=== PATIENT | female | born 1990 | race Hispanic/Latino ===

== ENCOUNTER 2020-12-11 15:01 | Observation (INO) | payer OTHER ==
[2020-12-11 19:31] LABS: Basophils % 1.1 % (0-1.3); Hematocrit 18.6 % (36.0-45.0); Lymphocytes % 32.3 % (15.3-44.8); MPV 8.6 fL (7.6-11.3); RBC Red Blood Cell Count 3.41 M/uL (3.86-4.86)
[2020-12-11 19:36] LABS: Protime INR 1.14
[2020-12-11 19:41] LABS: Albumin 4.4 g/dL (3.4-5.0); Bilirubin Direct 0.2 mg/dL (0-0.2); Bilirubin Total 0.7 mg/dL (0.2-1.0); Magnesium 2.4 mg/dL (1.8-2.4); Protein, Total 8.7 g/dL (6.4-8.2)
--- NOTE | 2020-12-11 20:03 | EDPHYS ---
Physician Documentation [facility] Name: Natasha Villarreal Age: 30 yrs Sex: Female : 1990 Arrival Date: 12/11/2020 Time: 15:07 Bed 18 Private MD: ED Physician Da Juan HPI: 12/11 18:47 This 30 yrs old Female presents to ER via Ambulatory with complaints of Anemia.cp 18:47 Onset: The symptoms/episode began/occurred gradually. cp 18:47 Associated signs and symptoms: Pertinent negatives: abdominal pain, chest pain. cp 18:47 Patient reports history of heavy menstrual bleeding for past 1 year with bleeding cp lasting 1 week. Patient denies any current vaginal bleeding and/or blood in stools or dark colored stools. Patient reports last menstrual cycle was 1 week ago. 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 - Social history:: Smoking status: Patient denies any tobacco usage or history of. ROS: 18:55 Constitutional: Positive for fatigue, Negative for body aches, chills, fever, poor PO cp intake. 18:55 Eyes: Negative for injury, pain, redness, and discharge. cp 18:55 Cardiovascular: Negative for chest pain, edema, palpitations. 18:55 Respiratory: Negative for cough, shortness of breath, wheezing. 18:55 Abdomen/GI: Negative for abdominal pain, nausea, vomiting, and diarrhea. 18:55 : Negative for urinary symptoms, vaginal bleeding. 18:55 Neuro: Negative for altered mental status, dizziness, headache, syncope, weakness. 18:55 All other systems are negative. Exam: 19:00 Constitutional: The patient appears in no acute distress, alert, awake, comfortable, cp non-toxic, well developed, well nourished, obese. 19:00 Head/Face: Normocephalic, atraumatic. cp 19:00 Eyes: Periorbital structures: appear normal, Conjunctiva: normal, no exudate, no injection, Sclera: no appreciated abnormality, Lids and lashes: appear normal, bilaterally. 19:00 ENT: External ear(s): are unremarkable, Nose: is normal, Posterior pharynx: Airway: no evidence of obstruction, patent. 19:00 Chest/axilla: Inspection: normal. 19:00 Cardiovascular: Rate: tachycardic, Rhythm: regular, Edema: is not appreciated, JVD: is not appreciated. 19:00 Respiratory: the patient does not display signs of respiratory distress, Respirations: normal, no use of accessory muscles, no retractions, labored breathing, is not present, Breath sounds: are clear throughout, no decreased breath sounds, no stridor, no wheezing. 19:00 Abdomen/GI: Exam negative for discomfort, distension, guarding, Inspection: abdomen appears normal. 19:00 Back: pain, is absent, ROM is normal. 19:00 Neuro: Orientation: to person, place \\T\\ time. Mentation: is normal, Motor: moves all fours, strength is normal. 19:25 ECG was reviewed by the Attending Physician. Vital Signs: 15:22 BP 143 / 69; Pulse 100; Resp 17; Temp 98.8; Pulse Ox 99% on R/A; Weight 105.23 kg; ll1 Height 5 ft. 4 in. (162.56 cm); Pain 0/10; 19:27 BP 136 / 59; Pulse 96; Resp 14; Pulse Ox 100% on R/A; jp3 21:00 BP 130 / 70; Pulse 105; Resp 16; Pulse Ox 100% ; sf 22:00 BP 123 / 58; Pulse 99; Resp 16; Pulse Ox 99% ; sf 23:00 BP 124 / 51; Pulse 89; Resp 16; Temp 99; Pulse Ox 100% ; sf 23:25 BP 139 / 60; Pulse 97; Resp 16; Temp 98.7; Pulse Ox 100% ; Pain 0/10; sf 15:22 Body Mass Index 39.82 (105.23 kg, 162.56 cm) ll1 MDM: 18:23 Patient medically screened. cp 20:00 Data reviewed: vital signs, nurses notes, lab test result(s), radiologic studies, cp ultrasound. 20:00 Counseling: I had a detailed discussion with the patient and/or guardian regarding: the cp historical points, exam findings, and any diagnostic results supporting the discharge/admit diagnosis, lab results, radiology results, the need for further work-up and treatment in the hospital. 12/11 18:47 Order name: Basic Metabolic Panel 12/11 18:47 Order name: CBC with Diff; Complete Time: 19:48 12/11 19:51 Interpretation: Normal except: RBC 3.41; HGB 5.3; HCT 18.6; MCV 54.6; MCH 15.5; MCHC cp 28.4; PLT 494; RDW 21.3. 12/11 18:47 Order name: LFT's; Complete Time: 19:48 12/11 19:51 Interpretation: Normal except: TP 8.7; GLOB 4.3; A/G 1.0. 12/11 18:47 Order name: Magnesium; Complete Time: 19:48 12/11 18:47 Order name: PT-INR; Complete Time: 19:48 12/11 18:47 Order name: Type And Screen 12/11 18:47 Order name: Ptt, Activated; Complete Time: 19:48 12/11 18:47 Order name: Basic Metabolic Panel; Complete Time: 19:48 EDMS 12/11 20:45 Order name: Urine Dipstick--Ancillary (enter results) [facility] 12/11 20:45 Order name: Urine --Ancillary (enter results) [facility] 12/11 20:49 Order name: COVID-19 : Document "Date of Symptom Onset" if Symptomatic. 12/11 21:13 Order name: Urine Dipstick--Ancillary (enter results); Complete Time: 18:45 12/11 18:47 Order name: EKG - Nurse/Tech; Complete Time: 19:30 12/11 18:47 Order name: EKG; Complete Time: 18:47 12/11 18:47 Order name: Cardiac monitoring; Complete Time: 19:25 12/11 18:47 Order name: IV Saline Lock; Complete Time: 19:25 12/11 18:47 Order name: Labs collected and sent; Complete Time: 19:25 12/11 18:47 Order name: O2 Per Protocol; Complete Time: 19:25 12/11 18:47 Order name: O2 Sat Monitoring; Complete Time: 19:21 12/11 19:57 Order name: US Pelvis Complete; Complete Time: 21:42 cp 12/11 21:13 Order name: Urine --Ancillary (enter results); Complete Time: 18:45 sg 12/11 22:53 Order name: SARS-COV-2 RT PCR; Complete Time: 18:45 EDMS EC:25 Rate is 89 beats/min. Rhythm is regular. OR interval is normal. QRS interval is normal. cp QT interval is normal. T waves are Inverted in lead aVR. Interpreted by me. Reviewed by me. Administered Medications: No medications were administered Disposition: 12/11/20 20:03 Hospitalization ordered by Chong Strong for Observation. Preliminary diagnosis is Anemia in chronic diseases classified elsewhere. - Bed requested for Telemetry/MedSurg (observation). - Status is Observation. sf - Condition is Stable. - Problem is new. - Symptoms are unchanged. Addendum: 12/14/2020 08:24 Co-signature as Attending Physician, Da Juan MD I agree with the assessment and k dr plan of care. Signatures: Dispatcher [facility] Dora Barber RN RN mw Rittger, Kevin, MD MD [facility] Aric Tinsley PA PA cp Yoko Blanc RN RN 1 Bk Streeter RN RN sf Corrections: (The following items were deleted from the chart) 12/11 21:11 20:45 Urine Dipstick-Ancillary ordered. EDTX EDMS 21:11 20:45 Urine --Ancillary ordered. EDTX EDMS 23:04 20:03 Hospitalization Ordered by Chong Strong for Observation. Preliminary diagnosis mw is Anemia in chronic diseases classified elsewhere. Bed requested for Telemetry/MedSurg (observation). Status is Observation. Condition is Stable. Problem is new. Symptoms are unchanged. cp 12/12 00:02 12/11 23:04 12/11/2020 20:03 Hospitalization Ordered by Chong Strong for Observation. sf Preliminary diagnosis is Anemia in chronic diseases classified elsewhere. Bed requested for Telemetry/MedSurg (observation). Status is Observation. Condition is Stable. Problem is new. Symptoms are unchanged. mw
--- NOTE | 2020-12-11 20:03 | ER ---
Nurse's Notes [facility] Name: Natasha Villarreal Age: 30 yrs Sex: Female : 1990 Arrival Date: 12/11/2020 Time: 15:07 Bed 18 Private MD: Diagnosis: Anemia in chronic diseases classified elsewhere Presentation: 12/11 15:22 Chief complaint: Patient states: Had blood work drawn this [facility]. Was told to come to ER for low iron, possible blood transfusion. HGB 5.3, HCT 21. Fatigues easily. Coronavirus screen: Client denies travel out of the [place] in the last 14 days. At this time, the client does not indicate any symptoms associated with coronavirus-19. Ebola Screen: Patient denies travel to an Ebola-affected area in the 21 days before illness onset. Initial Sepsis Screen: Does the patient meet any 2 criteria? HR > 90 bpm. No. Patient's initial sepsis screen is negative. Does the patient have a suspected source of infection? No. Patient's initial sepsis screen is negative. Risk Assessment: Do you want to hurt yourself or someone else? Patient reports no desire to harm self or others. Onset of symptoms was December 11, 2020. 15:22 Method Of Arrival: Ambulatory [facility] 15:22 Acuity: CAMILLA 3 ll1 Triage Assessment: 15:28 General: Appears ill, Behavior is calm, cooperative, appropriate for age. ll1 15:28 Pain: Denies pain. Neuro: Level of Consciousness is awake, alert, obeys commands, ll1 Oriented to person, place, time, situation, Appropriate for age Integration Project Manager are equal bilaterally Moves all extremities. Full function Gait is steady, Speech is normal, Facial symmetry appears normal, Reports fatigues easily. +pale. Cardiovascular: Reports fatigue, Heart tones S1 S2 Capillary refill < 3 seconds Clubbing of nail beds is absent JVD is absent Patient's skin is warm and dry. Respiratory: No deficits noted. GI: No deficits noted. 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 - Social history:: Smoking status: Patient denies any tobacco usage or history of. Screenin:16 Abuse screen: Denies threats or abuse. Nutritional screening: No deficits noted. ll1 Tuberculosis screening: No symptoms or risk factors identified. Fall Risk IV access (20 points). Gait- Weak (10 pts.). Total Robles Fall Scale indicates Low Risk Score (25-44 pts). Fall prevention measures have been instituted. Side Rails Up X 2 Frequent Obs/Assesments occuring As available Patient and Family Educated on Fall Prevention Program and strategies. Assessment: 18:15 Reassessment: No changes from previously documented assessment. Patient and/or family ll1 updated on plan of care and expected duration. Pain level reassessed. Patient states symptoms have not improved. 19:36 General: Appears in no apparent distress. comfortable, Behavior is calm, cooperative, sf Denies feeling ill. Pain: Denies pain. Neuro: No deficits noted. Level of Consciousness is awake, alert, Oriented to person, place, time, situation. Cardiovascular: No deficits noted. Patient's skin is warm and dry. Rhythm is sinus rhythm. Respiratory: No deficits noted. Airway is patent Respiratory effort is even, unlabored, Respiratory pattern is regular, symmetrical. GI: No deficits noted. No signs and/or symptoms were reported involving the gastrointestinal system. : No deficits noted. No signs and/or symptoms were reported regarding the genitourinary system. EENT: No deficits noted. No signs and/or symptoms were reported regarding the EENT system. Derm: Skin is dry, Skin is pale, Skin temperature is warm. Musculoskeletal: No signs and/or symptoms reported regarding the musculoskeletal system. 21:00 Reassessment: Patient appears in no apparent distress at this time. No changes from sf previously documented assessment. Patient and/or family updated on plan of care and expected duration. Pain level reassessed. Patient is alert, oriented x 3, equal unlabored respirations, skin warm/dry/pink. 22:00 Reassessment: Patient appears in no apparent distress at this time. No changes from sf previously documented assessment. Patient and/or family updated on plan of care and expected duration. Pain level reassessed. Patient is alert, oriented x 3, equal unlabored respirations, skin warm/dry/pink. 23:00 Reassessment: Patient appears in no apparent distress at this time. No changes from previously documented assessment. Patient and/or family updated on plan of care and expected duration. Pain level reassessed. Patient is alert, oriented x 3, equal unlabored respirations, skin warm/dry/pink. 23:10 Reassessment: Blood transfusion started. 12/12 00:00 Reassessment: Blood transfusion continue upon transfer to floor, paper sent with patient. Vital Signs: 12/11 15:22 BP 143 / 69; Pulse 100; Resp 17; Temp 98.8; Pulse Ox 99% on R/A; Weight 105.23 kg; ll1 Height 5 ft. 4 in. (162.56 cm); Pain 0/10; 19:27 BP 136 / 59; Pulse 96; Resp 14; Pulse Ox 100% on R/A; jp3 21:00 BP 130 / 70; Pulse 105; Resp 16; Pulse Ox 100% ; sf 22:00 BP 123 / 58; Pulse 99; Resp 16; Pulse Ox 99% ; sf 23:00 BP 124 / 51; Pulse 89; Resp 16; Temp 99; Pulse Ox 100% ; sf 23:25 BP 139 / 60; Pulse 97; Resp 16; Temp 98.7; Pulse Ox 100% ; Pain 0/10; sf 15:22 Body Mass Index 39.82 (105.23 kg, 162.56 cm) ll1 ED Course: 15:07 Patient arrived in ED. mr 15:26 Triage completed. ll1 15:27 Arm band placed on. ll1 18:16 Patient placed in an exam room, on a stretcher. ll1 18:17 Patient has correct armband on for positive identification. Bed in low position. Call 1 light in reach. Side rails up X 1. 18:18 Aric Tinsley PA is PHCP. cp 18:18 Da Juan MD is Attending Physician. cp 19:05 Bk Streeter, ALICIA is Primary Nurse. sf 19:22 Basic Metabolic Panel Sent. sf 19:22 Inserted saline lock: 20 gauge in left antecubital area, using aseptic technique. Blood jp3 collected. 19:22 Initial lab(s) drawn, by nd, sent to lab. T\T\S collected, blood band applied to patient. jp3 Patient maintains SpO2 saturation greater than 95% on room air. 19:25 EKG done, by ED staff, reviewed by Aric CONTI. jp3 20:01 Chong Strong is Hospitalizing Provider. cp 20:13 US Pelvis Complete Sent. sf 20:25 US Pelvis Complete In Process Unspecified. EDLA 21:00 Urine collected: clean catch specimen, clear, COVID swab sent to lab. sf 21:09 Urine --Ancillary (enter results) Sent. 21:09 Urine Dipstick--Ancillary (enter results) Sent. sf 23:41 No provider procedures requiring assistance completed. Patient admitted, IV remains in sf place. Administered Medications: No medications were administered Outcome: 20:03 Decision to Hospitalize by Provider. cp 23:41 Admitted to Tele accompanied by tech, via stretcher, room 413, Report called to stepan Moe RN 23:41 Condition: stable 23:41 Instructed on the need for admit. 12/12 00:02 Patient left the ED. sf Signatures: Dispatcher [employer] [facility] Alecia Villarreal mr Aric Tinsley PA PA cp Lyle Ledbetter jp3 Yoko Blanc, RN RN ll1 Bk Streeter RN RN
--- NOTE | 2020-12-11 20:36 | RAD REPORT ---
EXAM DESCRIPTION: US - Pelvis Complete - 12/11/2020 8:25 pm CLINICAL HISTORY: Pelvic pain /anemia COMPARISON: February 2016 FINDINGS: The uterus measures 9 x 3 x 5cm. The endometrial stripe measures 4 millimeters. A fibroid is not seen. 12 millimeter nabothian cysts within the cervix The ovaries are normal in size and echotexture. The right and left adnexa unremarkable No significant free fluid is seen. IMPRESSION: Unremarkable pelvic ultrasound
[2020-12-11 22:02] LABS: Urine Blood NEGATIVE (Negative); Urine Glucose NEGATIVE (Negative); Urine Protein NEGATIVE (NEG); Urine Specific Gravity 1.025 (1.005-1.030); Urine Specific Gravity/Preg 1.025 (1.005-1.030)
[2020-12-11] MEDS ORDERED: NA CHLORIDE 0.9% 250 ML ONE (23:17)
[2020-12-12] MEDS ORDERED: ONDANSETRON 4 MG/2 ML VIAL IV PRN (00:43)
[2020-12-12] MEDS ORDERED: DIPHENHYDRAMINE 25 MG TAB/CAP PO PRN (00:43)
[2020-12-12] MEDS ORDERED: ACETAMINOPHEN 500 MG TAB PO PRN (00:43)
[2020-12-12 00:54] VITALS: BMI 40.2
[2020-12-12] MEDS ORDERED: NA CHLORIDE 0.9% 100 ML ONE (01:41)
--- NOTE | 2020-12-12 03:50 | P.HP ---
Certification for Inpatient Patient admitted to: Observation With expected LOS: <2 Midnights Patient will require the following post-hospital care: None Practitioner: I am a practitioner with admitting privileges, knowledge of patient current condition, hospital course, and medical plan of care. Services: Services provided to patient in accordance with Admission requirements found in Title 42 Section 412.3 of the Code of Federal Regulations <Jc Candelario - Last Filed: 12/12/20 03:44> Patient History Date of Service: 12/11/20 Primary Care Provider: Sobeida Diaz Reason for admission: anemia requiring transfusions History of Present Illness: Ms. Villarreal is a 30yo F with no PMH here today for incidental lab finding of Hgb 5.3 / Hct 18.6. She was told her iron was low at a fertility clinic appointment and was told to follow up with PCP who told her to come to the ER. She is asymptomatic. She said she had iron deficiency anemia in [facility] and took iron pills at that time. She no longer takes iron pills, but has just started prenatals. She has always had irregular periods, but since she started exercising and eating better her periods returned last year and now occur every month. For the past 6 mo they have become irregular and heavier than before. She uses 4-5 pads a day. Her periods last 7 days with cramping. She denies hemoptysis, hemetemesis, hematochezia, dizziness, lightheadedness, palpitations, fatigue. Her mom and sister are both anemic. Pelvic ultrasound was wnl. She was found to be incidentally COVID+. - Past Medical/Surgical History Has patient received pneumonia vaccine in the past: No Diabetic: No -: infertility - Family History Mother -: Other (see notes) Notes: anemia Sister Notes: anemia - Social History Smoking Status: Never smoker Alcohol use: No CD- Drugs: No Caffeine use: No Place of Residence: Home <Jc Candelario - Last Filed: 12/12/20 03:44> Date of Service: 12/12/20 <preeti sifuentes - Last Filed: 12/12/20 11:30> Allergies No Known Allergies Allergy (Verified 12/12/20 04:29) Review of Systems 10-point ROS is otherwise unremarkable <Jc Candelario - Last Filed: 12/12/20 03:44> Physical Examination - Vital Signs Temperature: 97.7 F Blood Pressure: 135/62 Pulse: 95 Respirations: 18 Pulse Ox (%): 100 - Physical Exam General: Alert, In no apparent distress, Oriented x3, Cooperative HEENT: Atraumatic, Normocephalic, PERRLA, Mucous membr. moist/pink Neck: Supple, 2+ carotid pulse no bruit, JVD not distended, No Thyromegaly, No LAD Respiratory: Clear to auscultation bilaterally, Normal air movement Cardiovascular: No edema, Normal pulses, Regular rate/rhythm, Normal S1 S2, No gallops, No rubs, No murmurs Capillary refill: <2 Seconds Gastrointestinal: Normal bowel sounds, Soft and benign, Non-distended, No ascites, No tenderness, No masses, No rebound, No guarding Musculoskeletal: No clubbing, No swelling, No contractures, No erythema, No tenderness, No warmth Integumentary: No rashes, No breakdown, No significant lesion, No tenderness/swelling, No erythema, No warmth, No cyanosis Neurological: Normal gait, Normal speech, Normal strength at 5/5 x4 extr, Normal tone, Sensation intact, Cranial nerves 3-12 intact, Normal affect Lymphatics: No axilla or inguinal lymphadenopathy - Studies Laboratory Data (last 24 hrs) 12/11/20 19:08: PT 13.1 H, INR 1.14, APTT 23.0 L 12/11/20 19:08: WBC 6.30, Hgb 5.3 L*, Hct 18.6 L*, Plt Count 494 H 12/11/20 19:08: Sodium 141, Potassium 4.0, BUN 14, Creatinine 0.83, Glucose 81, Magnesium 2.4, Total Bilirubin 0.7, AST 19, ALT 23, Alkaline Phosphatase 61 <Jc Candelario S - Last Filed: 12/12/20 03:44> - Studies Laboratory Data (last 24 hrs) 12/11/20 19:08: PT 13.1 H, INR 1.14, APTT 23.0 L 12/11/20 19:08: WBC 6.30, Hgb 5.3 L*, Hct 18.6 L*, Plt Count 494 H 12/11/20 19:08: Sodium 141, Potassium 4.0, BUN 14, Creatinine 0.83, Glucose 81, Magnesium 2.4, Total Bilirubin 0.7, AST 19, ALT 23, Alkaline Phosphatase 61 <preeti sifuentes - Last Filed: 12/12/20 11:30> Assessment and Plan - Problems (Diagnosis) (1) Anemia requiring transfusions Current Visit: Yes Status: Acute (2) COVID-19 Current Visit: Yes Status: Acute - Plan -initial Hgb 5.3, MCV 54.6 -receiving 2 units of pRBCs, will recheck H/H after transfusion -iron panel pending, may require IV iron -can discharge when Hgb>7 -pelvic U/S wnl Discharge Plan: Home Plan to discharge in: 24 Hours - Advance Directives Does patient have a Living Will: No Does patient have a Durable POA for Healthcare: No - Code Status/Comfort Care Code Status Assessed: Yes (full code) Critical Care: No Time Spent Managing Pts Care (In Minutes): 70 <Jc Candelario - Last Filed: 12/12/20 03:44> Physician Review: Patient Assessed, Agree with Above Assessment and Plan Physician Review Additional Text: Iron deficiency anemia. COVID 19 Plan: Transfuse 2 units PRBC. Recheck hemoglobin and transfuse p.r.n. to keep hemoglobin about 7 Iron therapy. <preeti sifuentes - Last Filed: 12/12/20 11:30>
[2020-12-12 07:37] LABS: Albumin 3.8 g/dL (3.4-5.0); Bilirubin Total 1.2 mg/dL (0.2-1.0); Magnesium 2.4 mg/dL (1.8-2.4); Phosphorus 3.9 mg/dL (2.5-4.9); Potassium 4.1 mmol/L (3.5-5.1); Protein, Total 7.8 g/dL (6.4-8.2)
[2020-12-12 07:46] LABS: Thyroid Stimulating Hormone 4.02 uIU/mL (0.360-3.740)
[2020-12-12 08:17] LABS: Basophils % 1.7 % (0-1.3); Hematocrit 23.5 % (36.0-45.0); Lymphocytes % 34.4 % (15.3-44.8); MPV 8.7 fL (7.6-11.3); RBC Red Blood Cell Count 3.79 M/uL (3.86-4.86)
[2020-12-12] MEDS ORDERED: NA CHLORIDE 0.9% 250 ML ONE (10:53)
--- NOTE | 2020-12-12 11:12 | EKG ---
Test Date: 2020-12-11 Test Time: 19:18:02 Clinical Specialist Medical Device: LILIANA MEASUREMENT RESULTS: Intervals: Rate: 89 WY: 170 QRSD: 82 QT: 366 QTc: 445 Palms: P: 42 WY: 170 QRS: 71 T: 14 INTERPRETIVE STATEMENTS: Normal sinus rhythm Normal ECG No previous ECG available for comparison Electronically Signed On 12-12-20 11:11:08 CDT by Reji Amor
--- NOTE | 2020-12-12 11:35 | P.DS ---
Admission Date: 12/11/20 Discharge Date: 12/12/20 Primary Care Provider: Sobeida Diaz Disposition: ROUTINE DISCHARGE Discharge Condition: FAIR Reason for Admission: anemia requiring transfusions - Problems (1) Iron deficiency anemia due to chronic blood loss Current Visit: Yes Status: Acute (2) Anemia requiring transfusions Current Visit: Yes Status: Acute (3) COVID-19 Current Visit: Yes Status: Acute Brief History of Present Illness: 30-year-old woman was referred from a fertility Clinic for evaluation for anemia with hemoglobin of 5.3. Her hemoglobin in the ED was 5.3. Patient reports heavy irregular menses which is likely the cause of the anemia. Patient was hospitalized for blood transfusion. Hospital Course: Patient hospitalized in given 3 units PRBC transfusion. Posttransfusion hemoglobin is up to.... Her iron level is also low for which patient is prescribed iron polysaccharide. She is up to follow with her brake liner for further evaluation and treatment for the heavy menses. Patient deemed clinically stable for discharge. Vital Signs/Physical Exam: Temp Pulse Resp BP Pulse Ox 97.1 F 89 20 126/60 100 12/12/20 08:00 12/12/20 08:00 12/12/20 08:00 12/12/20 08:00 12/12/20 08:00 General: Alert, In no apparent distress Neck: Supple Respiratory: Normal air movement, Other (Nonlabored breathing) Cardiovascular: No edema, Regular rate/rhythm Gastrointestinal: Soft and benign, Non-distended Musculoskeletal: No swelling Integumentary: No rashes Neurological: Normal strength at 5/5 x4 extr Laboratory Data at Discharge: WBC 5.80 K/uL (4.3-10.9) 12/12/20 07:09 Hgb 6.9 g/dL (12.0-15.0) L* 12/12/20 07:09 Hct 23.5 % (36.0-45.0) L D 12/12/20 07:09 Plt Count 465 K/uL (152-406) H 12/12/20 07:09 PT 13.1 SECONDS (9.5-12.5) H 12/11/20 19:08 INR 1.14 12/11/20 19:08 APTT 23.0 SECONDS (24.3-36.9) L 12/11/20 19:08 Sodium 139 mmol/L (136-145) 12/12/20 07:09 Potassium 4.1 mmol/L (3.5-5.1) 12/12/20 07:09 BUN 14 mg/dL (7-18) 12/12/20 07:09 Creatinine 0.82 mg/dL (0.55-1.3) 12/12/20 07:09 Glucose 85 mg/dL (74-106) 12/12/20 07:09 Phosphorus 3.9 mg/dL (2.5-4.9) 12/12/20 07:09 Magnesium 2.4 mg/dL (1.8-2.4) 12/12/20 07:09 Total Bilirubin 1.2 mg/dL (0.2-1.0) H 12/12/20 07:09 AST 14 U/L (15-37) L 12/12/20 07:09 ALT 20 U/L (12-78) 12/12/20 07:09 Alkaline Phosphatase 55 U/L (45-117) 12/12/20 07:09 Home Medications: Iron Polysaccharide Complex [Polysaccharide Iron] 150 mg PO DAILY #30 capsule 12/12/20 New Medications: Iron Polysaccharide Complex [Polysaccharide Iron] 150 mg PO DAILY #30 capsule Followup: OOT,OOT [Primary Care Provider] -
[2020-12-12 11:57] VITALS: O2SAT 100
[2020-12-12 12:08] LABS: Anisocytosis 3+; Basophilic Stippling 1+; Blood Morphology Comment NOTED (NOT SEEN); Hypochromasia 4+; Platelet Estimate ADEQ; Polychromasia 1+; White Blood Cell Scan OK (OK)
[2020-12-12 17:12] VITALS: BP 122/58; TEMP 97.5
[2020-12-12 17:46] LABS: Hematocrit 27.4 % (36.0-45.0)
== END 2020-12-12 18:27 | disposition home or self-care (01) ==
LOC: ER 15:01 → ERHOLD 21:32 → INTOOBSV 21:32 → 4TH 23:36
PROVIDERS: ADMIT Internal Medicine; ATTEND Internal Medicine
DX: D50.0 Iron deficiency anemia secondary to blood loss (chronic) (principal); U07.1 COVID-19; E03.9 Hypothyroidism, unspecified; Z83.2 Family history of diseases of the blood and blood-forming organs and certain disorders involving the immune mechanism
CPT/HCPCS: 36430 ×2; 93005; 85025 ×2; 80048; 36415; 86900; 83735 ×2; 86850; 81025; 84100; 85610; 86901; 80076; 85730; 84443; 85018; 85014; 81003; 84439; 82728; 83540; 80053; 84466; 76856; 99285; U0003; P9016 ×3; J7050 ×2; G0378

== ENCOUNTER 2025-05-07 09:32 | Emergency (ER) | payer OTHER, SELFPAY ==
--- OUTSIDE RECORDS SUMMARY | 2025-05-07 09:34 | XMS REPORT | Continuity of Care Document ---
Author Name Unknown Address [address] [facility] [place] [address] [facility] Address [address] [facility] [place] [address] Care Team Providers Care Shell Molder Name Role Phone Jr Tesfaye Primary Care Physician [phone] Medications Ordered Medication Name Filled Medication Name Start Date Stop Date Current Medication? Ordering Clinician Indication Dosage Frequency Signature (SIG) Comments Components Source Nexplanon 68 mg subdermal implant 01-30 00:00: 00 Yes 1mg Vahid Corrigan Ferrex 150 mg iron capsule 01-18 00:00: 00 Yes 1mg iron Vahid Corrigan Dose Unknown 12-24 00:00: 00 Yes Vahid Corrigan Ferrex 150 mg iron capsule 12-23 00:00: 00 Yes 1mg iron Vahid Corrigan levothyroxi ne 25 mcg tablet 12-19 00:00: 00 Yes 5mcg Vahid Corrigan Immunizations Ordered Immunization Name Filled Immunization Name Date Status Comments Source HPV9 HPV9 2021-02-04 00:00:00 Completed Vahid Louisa Corrigan HPV, quadrivalent HPV, quadrivalent 2020-12-23 00:00:00 Completed Vahid Corrigan Vital Signs Vital Name Observation Time Observation Value Comments S kathy BP Systolic 2025-01-30 11:43:00 122 mm[Hg] Héctor jatinder Louisa Corrigan BP Diastolic 2025-01-30 11:43:00 87 mm[Hg] Rohan Corrigan Weight Measured 2025-01-30 11:43:00 309.00 pounds Vahid Louisa Corrigan Height Measured 2025-01-30 11:43:00 64.00 inches Vahid Louisa Corrigan Body Temperature 2025-01-30 11:43:00 97.80 degrees Vahid F Shekhar Heart Rate 2025-01-30 11:43:00 108.00 /min Step hen F Shekhar Respiratory Rate 2025-01-30 11:43:00 19.00 /min Vahid F Shekhar BP Systolic 2021-02-04 08:01:00 124 mm[Hg] Step hen F Shekhar BP Diastolic 2021-02-04 08:01:00 84 mm[Hg] Rohan phen F Shekhar Weight Measured 2021-02-04 08:01:00 224.80 pounds Vahid F Shekhar Height Measured 2021-02-04 08:01:00 64.00 inches Vahid F Shekhar Body Temperature 2021-02-04 08:01:00 98.10 degrees Vahid F Shekhar Heart Rate 2021-02-04 08:01:00 68.00 /min Naye en F Shekhar Respiratory Rate 2021-02-04 08:01:00 17.00 /min Vahid F Shekhar BP Systolic 2020-12-23 11:10:00 124 mm[Hg] Step hen F Shekhar BP Diastolic 2020-12-23 11:10:00 82 mm[Hg] Rohan phen F Shekhar Weight Measured 2020-12-23 11:10:00 235.00 pounds Vahid F Shekhar Height Measured 2020-12-23 11:10:00 64.00 inches Vahid F Shekhar Body Temperature 2020-12-23 11:10:00 98.50 degrees Vahid F Shekhar Heart Rate 2020-12-23 11:10:00 83.00 /min Naye en F Shekhar Respiratory Rate 2020-12-23 11:10:00 17.00 /min Vahid F Shekhar BP Systolic 2020-12-11 11:51:00 118 mm[Hg] Step hen F Shekhar BP Diastolic 2020-12-11 11:51:00 55 mm[Hg] Rohan phen F Shekhar Weight Measured 2020-12-11 11:51:00 233.40 pounds Vahid F Shekhar Height Measured 2020-12-11 11:51:00 64.00 inches Vahid F Shekhar Body Temperature 2020-12-11 11:51:00 99.50 degrees Vahid F Shekhar Heart Rate 2020-12-11 11:51:00 108.00 /min Step hen F Shekhar Respiratory Rate 2020-12-11 11:51:00 17.00 /min Vahid F Shekhar BP Systolic 2018-04-09 11:53:00 142 mm[Hg] Step hen F Shekhar BP Diastolic 2018-04-09 11:53:00 86 mm[Hg] Rohan phen F Shekhar Weight Measured 2018-04-09 11:53:00 175.00 pounds Vahid F Shekhar Height Measured 2018-04-09 11:53:00 64.00 inches Vahid F Shekhar Body Temperature 2018-04-09 11:53:00 97.90 degrees Vahid F Shekhar Heart Rate 2018-04-09 11:53:00 93.00 /min Naye en F Shekhar Respiratory Rate 2018-04-09 11:53:00 19.00 /min Vahid F Shekhar BP Systolic 2017-12-19 09:20:00 119 mm[Hg] Step hen F Shekhar BP Diastolic 2017-12-19 09:20:00 80 mm[Hg] Rohan phen F Shekhar Weight Measured 2017-12-19 09:20:00 268.20 pounds Vahid F Shekhar Height Measured 2017-12-19 09:20:00 64.00 inches Vahid F Shekhar Body Temperature 2017-12-19 09:20:00 98.60 degrees Vahid F Shekhar Heart Rate 2017-12-19 09:20:00 97.00 /min Naye en F Shekhar Respiratory Rate 2017-12-19 09:20:00 12.00 /min Vahid F Shekhar BP Systolic 2017-12-07 11:08:00 139 mm[Hg] Step hen F Shekhar BP Diastolic 2017-12-07 11:08:00 85 mm[Hg] Rohan phen F Shekhar Weight Measured 2017-12-07 11:08:00 267.20 pounds Vahid F Shekhar Height Measured 2017-12-07 11:08:00 64.00 inches Vahid F Shekhar Body Temperature 2017-12-07 11:08:00 98.20 degrees Vahid F Shekhar Heart Rate 2017-12-07 11:08:00 99.00 /min Naye en F Shekhar Respiratory Rate 2017-12-07 11:08:00 22.00 /min Vahid F Shekhar Encounters Start Date/Time End Date/Time Encounter Type Admission Type Attending [facility] Care Department Encounter ID Source 2025-02-06 16:49:36 2025-02-06 16:49:36 Outpatient [facility] [id number] Vahid Corrigan 2025-01-30 11:37:45 2025-01-30 11:37:45 Outpatient [facility] [id number] Vahid Corrigan 2025-01-30 00:00:00 2025-01-30 00:00:00 Outpatient Visit [facility] [id number] Vahid Corrigan Results Test Description Test Time Test Comments Results Result Co mments Source Vahid CorriganIRON BINDING CAPACITY AND IRON AND % [id number] 00:00:00* Test Item Value Reference Range Interpretation Comme nts IRON, SERUM (test code = 2222) 39 UG/DL UNSATURATED IBC (test code = 67658) 415 UG/DL CALC TOTAL IBC (test code = 2077) 454 UG/DL CALC % IRON SAT (test code = 2079) 9 % Vahid [id number] 00:00:00* Test Item Value Reference Range Interpretation Comme nts FERRITIN (test code = 2075) 10 NG/ML Vahid [id number] 00:00:00* Test Item Value Reference Range Interpretation Comme nts TRANSFERRIN (test code = 4936) 390 MG/DL Vahid CorriganPAP TEST, THINPREP, [id number] 00:00:00* Test Item Value Reference Range Interpretation Comme nts SOURCE: (test code = 8001) Cervical/Endocervical SLIDES: (test code = 8011) 1 LMP: (test code = 8021) 11/28/2020 SPECIMEN ADEQUACY: (test code = 44839) (NOTE) INTERPRETATION: (test code = 11388) NILM/NO EPITH. ABNORMALITY;SEE BELOW OTHER COMMENTS: (test code = 8081) (NOTE) TECHNOLOGY INTERN: (test code = 8101) Stan Yi QC TECHNOLOGIST: (test code = 8111) MARKY Briseno(ASCP)IAC LOCATION: (test code = 55695) (NOTE) CPT: (test code = 8140) (NOTE) Vahid Jasso ShekharGC AND CHLAMYDIA AMPLIFIED, [id number] 00:00:00* Test Item Value Reference Range Interpretation Comme nts GONORRHEA, TMA (test code = 25773) NEGATIVE CHLAMYDIA, TMA (test code = 16016) NEGATIVE Vahid [id number] 00:00:00* Test Item Value Reference Range Interpretation Comme nts RPR RESULT (test code = 3501) NON-REACTIVE RPR TITER (test code = 3500) NOT INDIC. TITER Vahid CorriganVAGINAL PATHOGENS DNA [id number] 00:00:00* Test Item Value Reference Range Interpretation Comme nts TATA SPECIES (test code = 90250) NEGATIVE G. VAGINALIS (test code = 53626) POSITIVE T. VAGINALIS (test code = 30043) NEGATIVE Vahid CorriganHPV HIGH RISK WITH GENOTYPE, [id number] 00:00:00* Test Item Value Reference Range Interpretation Comme nts HPV HIGH RISK INTERP (test c ode = 43151) POSITIVE HPV 16 (test code = 09756) NEGATIVE HPV 18 (test code = 46151) NEGATIVE HPV, HR, OTHER GENOTYPES (te st code = 55913) POSITIVE Vahid CorriganCBC W/AUTO [id number] 00:00:00* Test Item Value Reference Range Interpretation Comme nts WBC (test code = 1001) 6.1 K/UL RBC (test code = 1002) 5.12 M/UL HEMOGLOBIN (test code = 1003) 10.3 G/DL HEMATOCRIT (test code = 1004) 35.9 % MCV (test code = 1005) 70.1 fL MCH (test code = 1006) 20.1 PG MCHC (test code = 1007) 28.7 G/DL RDW (test code = 1038) (NOTE) % NEUTROPHILS (test code = 1008) 58.4 % LYMPHOCYTES (test code = 1010) 35.6 % MONOCYTES (test code = 1011) 4.7 % EOSINOPHILS (test code = 1012) 1.3 % BASOPHILS (test code = 1013) 0.0 % PLATELET COUNT (test code = 1015) 466 K/UL COMMENTS (test code = 1016) (NOTE) Vahid CorriganIRON BINDING CAPACITY AND IRON AND % [id number] 00:00:00* Test Item Value Reference Range Interpretation Comme nts IRON, SERUM (test code = 2221) 71 UG/DL UNSATURATED IBC (test code = ) 399 UG/DL CALC TOTAL IBC (test code = 2076) 470 UG/DL CALC % IRON SAT (test code = 2078) 15 % Vahid [id number] 00:00:00* Test Item Value Reference Range Interpretation Comme nts FERRITIN (test code = 2074) 10 NG/ML Vahid Jasso [id number] 00:00:00* Test Item Value Reference Range Interpretation Comme nts TRANSFERRIN (test code = 4936) 374 MG/DL Vahid CorriganHIV AB/AG COMBO RFLX [id number] 00:00:00* Test Item Value Reference Range Interpretation Comme nts HIV 1/2 4TH GEN, RFLX CONF ( test code = 3514) NON-REACTIVE Vahid CorriganCBC W/AUTO [id number] 00:00:00* Test Item Value Reference Range Interpretation Comme nts WBC (test code = 1001) 5.6 K/UL RBC (test code = 1002) 3.49 M/UL HEMOGLOBIN (test code = 1003) 5.0 G/DL HEMATOCRIT (test code = 1004) 20.3 % MCV (test code = 1005) 58.2 fL MCH (test code = 1006) 14.3 PG MCHC (test code = 1007) 24.6 G/DL RDW (test code = 1038) 20.4 % NEUTROPHILS (test code = 1008) 56.1 % LYMPHOCYTES (test code = 1010) 39.5 % MONOCYTES (test code = 1011) 2.6 % EOSINOPHILS (test code = 1012) 0.9 % BASOPHILS (test code = 1013) 0.9 % PLATELET COUNT (test code = 1015) 514 K/UL COMMENTS (test code = 1016) (NOTE) Vahid Jasso AustinIRON BINDING CAPACITY AND IRON AND % [id number] 00:00:00* Test Item Value Reference Range Interpretation Comme nts IRON, SERUM (test code = 2221) 38 UG/DL UNSATURATED IBC (test code = ) 484 UG/DL CALC TOTAL IBC (test code = 2076) 522 UG/DL CALC % IRON SAT (test code = 2078) 7 % Vahid Jasso [id number] 00:00:00* Test Item Value Reference Range Interpretation Comme nts FERRITIN (test code = 2075) <2 NG/ML Vahid [id number] 00:00:00* Test Item Value Reference Range Interpretation Comme nts TRANSFERRIN (test code = 4936) 413 MG/DL Vahid Jasso [id number] (COVID-19) by RT-PCR (HIGH RISK)2020-07-23 00:00:00* Test Item Value Reference Range Interpretation Comme nts SARS-CoV-2 INTERPRETATION (test code = 81339) Negative SOURCE (test code = 52421) Nasal_Swab_in _VTM__ UTM Vahid Jasso [id number] (COVID-19) by RT-PCR (HIGH RISK)2020-04-04 00:00:00* Test Item Value Reference Range Interpretation Comme nts SARS-CoV-2 INTERPRETATION (t est code = 85206) POSITIVE SOURCE (test code = 91082) NOT SPECIFIED Vahid CorriganTHYROID II PROFILE (T3U, T4, T7, TSH)2018-04-10 00:00:00* Test Item Value Reference Range Interpretation Comme nts T-UPTAKE (test code = 2817) 33.1 % THYROX. BIND. CAPAC. (test c ode = 64707) 1.0 T4 (THYROXINE) (test code = 2819) 7.7 UG/DL CORRECTED T4 (FTI) (test cod e = 2820) 7.7 UG/DL TSH, THIRD GENERATION (test code = 2821) 2.780 UIU/ML Vahid CorriganEVE TEST, THINPREP, [id number] 00:00:00* Test Item Value Reference Range Interpretation Comme nts SOURCE: (test code = 8001) Cervical/Endocervical SLIDES: (test code = 8011) 1 LMP: (test code = 8021) 07/2017 SPECIMEN ADEQUACY: (test code = 24371) (NOTE) INTERPRETATION: (test code = 91037) NO EPITHELIAL ABNORMALITY SEE BELOW OTHER COMMENTS: (test code = 8081) (NOTE) TECHNOLOGY INTERN: (test code = 8101) MARKY Meneses(ASCP) QC TECHNOLOGIST: (test code = 8111) MARKY Brisneo(ASCP)IAC LOCATION: (test code = 69917) (NOTE) CPT: (test code = 8140) (NOTE) Vahid CorriganHPV HIGH RISK WITH GENOTYPE, [id number] 00:00:00* Test Item Value Reference Range Interpretation Comme nts HPV HIGH RISK INTERP (test c ode = 17174) POSITIVE HPV 16 (test code = 71719) NEGATIVE HPV 18 (test code = 65895) NEGATIVE HPV, HR, OTHER GENOTYPES (te st code = 38584) POSITIVE Vahid CorriganGC AND CHLAMYDIA AMPLIFIED, [id number] 00:00:00* Test Item Value Reference Range Interpretation Comme nts GONORRHEA, TMA (test code = 91053) NEGATIVE CHLAMYDIA, TMA (test code = 97124) NEGATIVE Vahid CorriganHEMOGLOBIN [id number] 00:00:00* Test Item Value Reference Range Interpretation Comme dayanara HEMOGLOBIN A1c (test code = 42996) 4.8 % Vahid CorriganLIPID [id number] 00:00:00* Test Item Value Reference Range Interpretation Comme nts CHOLESTEROL (test code = 2210) 138 MG/DL TRIGLYCERIDES (test code = 2232) 88 MG/DL HDL CHOLESTEROL (test code = 2220) 33 MG/DL CALC LDL CHOL (test code = 2237) 87 MG/DL RISK RATIO LDL/HDL (test cod e = 2238) 2.65 RATIO Vahid [id number] 00:00:00* Test Item Value Reference Range Interpretation Comme nts TSH (test code = 2821) 4.700 UIU/ML Vahid CorriganHIV AB/AG COMBO RFLX [id number] 00:00:00* Test Item Value Reference Range Interpretation Comme nts HIV 1/2 4TH GEN, RFLX CONF ( test code = 3514) NON-REACTIVE Vahid Louisa Shekhar Notes Date/Time Note Provider Source Vahid Corrigan [facility]
[2025-05-07] MEDS ORDERED: NA CHLORIDE 0.9% 1,000 ML ONE (10:18)
[2025-05-07 10:22] LABS: Absolute Lymphocytes (CBC) 1.4 K/uL (0.7-4.9); Hematocrit 37.1 % (36.0-45.0); Hemoglobin 12.3 g/dL (12.0-15.0); MCH 25.2 pg (27.0-35.0); MCHC 33.1 g/dL (32.0-36.0); MCV 76.1 fL (80-100); MPV 7.0 fL (7.6-11.3); Nucleated RBC Absolute Count 0.0 (0-0); Nucleated Red Blood Cells % 0.1 % (0-0); RBC Red Blood Cell Count 4.87 M/uL (3.86-4.86); White Blood Count 6.10 thou/uL (4.3-10.9)
[2025-05-07 10:32] LABS: PT Prothrombin Time 13.2 SECONDS (10-13.0); Protime INR 1.17
[2025-05-07 10:45] LABS: ALT/SGPT 44.0 U/L (13-56); AST/SGOT 13.0 U/L (15-37); Albumin 3.7 g/dL (3.4-5.0); Albumin/Globulin Ratio 0.9 (1.1-1.8); Alkaline Phosphatase 68.0 U/L (45-117); Anion Gap 9.8 mEq/L (5.0-15.0); BUN Blood Urea Nitrogen 11.0 mg/dL (7-18); Bilirubin Indirect, Calculated 0.7 mg/dL (0.2-0.8); Globulin 4.2 g/dL (2.3-3.5); Glucose Level 84.0 mg/dL (74-106); Magnesium 2.1 mg/dL (1.6-2.4); NT PRO-BNP 642.0 pg/mL (<125); Potassium 3.8 mEq/L (3.5-5.1); Troponin High Sensitivity 14.6 pg/mL (<58.9)
--- NOTE | 2025-05-07 11:02 | RAD REPORT ---
EXAM: Chest Single View HISTORY: 35 years Female CHEST PAIN COMPARISON: No prior exams FINDINGS: LUNGS/PLEURA: Hazy opacities in lung bases likely due to underpenetration. No definite acute process. CARDIAC/MEDIASTINUM: Moderate cardiomegaly. UPPER ABDOMEN: No significant abnormality. BONES: No acute abnormality. LINES/TUBES/OTHER: N/A IMPRESSION: Hazy basilar opacities favored secondary to underpenetration. Moderate cardiomegaly.
--- NOTE | 2025-05-07 11:08 | ER ---
Nurse's Notes [facility] Name: Natasha Villarreal Age: 35 yrs Sex: Female : 1990 Arrival Date: 05/07/2025 Time: 09:32 Bed 7 Private MD: Diagnosis: Chest pain, unspecified;Elevated blood-pressure reading, without diagnosis of hypertension;Cardiomegaly Presentation: 05/07 09:53 Chief complaint: Patient states: CP for 2 weeks. Coronavirus screen: Client denies ll1 travel out of the [place] in the last 14 days. At this time, the client does not indicate any symptoms associated with coronavirus-19. Ebola Screen: Patient denies travel to an Ebola-affected area in the 21 days before illness onset. Initial Sepsis Screen: Does the patient meet any 2 criteria? No. Patient's initial sepsis screen is negative. Does the patient have a suspected source of infection? No. Patient's initial sepsis screen is negative. Risk Assessment: Do you want to hurt yourself or someone else? Patient reports no desire to harm self or others. Onset of symptoms was April 23, 2025. 09:53 Method Of Arrival: Ambulatory ll1 09:53 Acuity: CAMILLA 2 ll1 Triage Assessment: 09:50 General: Appears in no apparent distress. comfortable, obese, Behavior is cooperative, bp appropriate for age, anxious. Pain: Complains of pain in chest. EENT: No deficits noted. Neuro: No deficits noted. Cardiovascular: Rhythm is sinus tachycardia. Respiratory: No deficits noted. GI: No signs and/or symptoms were reported involving the gastrointestinal system. : No signs and/or symptoms were reported regarding the genitourinary system. Derm: No deficits noted. Musculoskeletal: No deficits noted. 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 - Infectious Disease History:: Denies. - Social history:: Smoking status: Patient denies any tobacco usage or history of. Screenin:50 [facility] ED Fall Risk Assessment (Adult) History of falling in the last 3 months, bp including since admission No falls in past 3 months (0 pts) Confusion or Disorientation No (0 pts) Intoxicated or Sedated No (0 pts) Impaired Gait No (0 pts) Mobility Assist Device Used No (0 pt) Altered Elimination No (0 pt) Score/Fall Risk Level 0 - 2 = Low Risk Oriented to surroundings. Abuse screen: Denies threats or abuse. Denies injuries from another. Nutritional screening: No deficits noted. Tuberculosis screening: No symptoms or risk factors identified. Assessment: 09:50 General: SEE TRIAGE NOTE. bp 10:24 Reassessment: Patient appears in no apparent distress at this time. Patient is alert, bp oriented x 3, equal unlabored respirations, skin warm/dry/pink. Vital Signs: 09:53 Pulse 119; Resp 18; Temp 97.3; Pulse Ox 99% on R/A; Weight 139.71 kg; Height 5 ft. 4 ll1 in. ; 10:24 BP 131 / 88; Pulse 107; Resp 18; Pulse Ox 99% ; bp 11:40 BP 142 / 94; Pulse 100; Resp 16; Pulse Ox 96% ; bp 09:53 Body Mass Index 52.87 (139.71 kg, 162.56 cm) ll1 ED Course: 09:34 Patient arrived in ED. mr 09:34 Antionette Toledo PA-C is PHCP. sb4 09:34 Aric Gamez MD is Attending Physician. sb4 09:50 Arm band placed on Patient placed in an exam room, on a stretcher. ll1 09:50 Patient has correct armband on for positive identification. Client placed on continuous bp cardiac and pulse oximetry monitoring. NIBP monitoring applied. environmental monitoring specialist on. Pulse ox on. NIBP on. 09:54 Triage completed. ll1 10:03 Jorge Luis Chris, ALICIA is Primary Nurse. bp 10:21 Initial lab(s) drawn, by or, sent to lab. EKG done, by ED staff, reviewed by Antionette Toledo PA-C. Inserted saline lock: 20 gauge in right forearm, using aseptic technique. Blood collected. Flushed with 10 mL NS. Patient maintains SpO2 saturation greater than 95% on room air. 10:44 XRAY Chest (1 view) In Process Unspecified. EDMS 11:07 Naresh Menendez MD is Referral Physician. sb4 11:40 No provider procedures requiring assistance completed. IV discontinued, intact, bp bleeding controlled, No redness/swelling at site. Pressure dressing applied. Administered Medications: 10:21 Drug: NS 0.9% IV 1000 ml IV at 1000 ml once; to be given as a bolus over 60 minutes bp Route: IV; Rate: 1000 ml; Site: right forearm; 11:41 Follow up: IV Status: Completed infusion bp Medication: 09:50 VIS not applicable for this client. bp Outcome: 11:07 Discharge ordered by MD. rooney 11:40 Discharged to home ambulatory, bp 11:40 Condition: stable 11:40 Discharge instructions given to patient, Instructed on discharge instructions, follow up and referral plans. Demonstrated understanding of instructions, follow-up care, :41 Patient left the ED. bp Signatures: Dispatcher [employer] EDMS Alecia Villarreal, Armando Roberts mr Jorge Luis Chris, RN RN Yoko Corrigan RN RN ll1 Antionette Toledo, PA-Elsa PA-C sb4
--- NOTE | 2025-05-07 11:08 | EDPHYS ---
Physician Documentation [facility] Name: Natasha Villarreal Age: 35 yrs Sex: Female : 1990 Arrival Date: 05/07/2025 Time: 09:32 Bed 7 Private MD: ED Physician Aric Gamez HPI: 05/07 09:53 This 35 yrs old Female presents to ER via Unassigned with complaints of Chest sb4 Pain. 09:53 Patient reports intermittent chest pain over the past few weeks, got worse yesterday. sb4 States it feels like sharp and like pressure. Denies any pattern. No radiation of the pain. States that it improved with aspirin. Had elevated blood pressure on her physical year ago but has been monitoring it and it has been within normal limits. Denies any medical history, does not smoke. 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 - Infectious Disease History:: Denies. - Social history:: Smoking status: Patient denies any tobacco usage or history of. ROS: 09:54 Constitutional: Negative for fever, chills, and weight loss, sb4 09:54 Cardiovascular: Positive for chest pain, 09:54 All other systems are negative, Exam: 09:54 Head/Face: Normocephalic, atraumatic. Eyes: Extra-ocular motions intact. Periorbital sb4 areas with no swelling, redness, or edema. ENT: Mucous membranes moist. Respiratory: No increased work of breathing, no retractions or nasal flaring. Abdomen/GI: Soft, non-tender, no distension. Skin: Warm, dry with normal turgor. Normal color with no rashes, no lesions, and no evidence of cellulitis. 09:54 Constitutional: The patient appears in no acute distress, alert, awake, obese, 09:55 Cardiovascular: Rate: tachycardic, Rhythm: regular, sb4 Vital Signs: 09:53 Pulse 119; Resp 18; Temp 97.3; Pulse Ox 99% on R/A; Weight 139.71 kg; Height 5 ft. 4 ll1 in. ; 10:24 BP 131 / 88; Pulse 107; Resp 18; Pulse Ox 99% ; bp 11:40 BP 142 / 94; Pulse 100; Resp 16; Pulse Ox 96% ; bp 09:53 Body Mass Index 52.87 (139.71 kg, 162.56 cm) ll1 MDM: 09:34 Medical Screening Exam initiated sb4 10:46 Differential diagnosis: bronchitis, pneumonia cardiac arrhythmia, pleurisy, anxiety, sb4 hypertension. Independent interpretation of the following test(s) in the Emergency Department X-Ray: My interpretation is My interpretation of the chest x-ray image is limited study due to body habitus, possible mild cardiomegaly. Care significantly affected by the following chronic conditions: Obesity. 11:09 Data reviewed: vital signs, nurses notes, lab test result(s), EKG, radiologic studies, sb4 and as a result, I will discharge patient. Consideration of Admission/Observation Escalation of care including admission/observation considered. Counseling: I had a detailed discussion with the patient and/or guardian regarding the historical points, exam findings, and any diagnostic results supporting the discharge/admit diagnosis, the presence of at least one elevated blood pressure reading (>120/80) during this emergency department visit, lab results, radiology results, the need for outpatient follow up, for definitive care, to return to the emergency department if symptoms worsen or persist or if there are any questions or concerns that arise at home. Special discussion: Based on the patient's history, exam, and Dx evaluation, there is no indication for emergent intervention or inpatient Tx. It is understood by the patient/guardian that if the Sx's persist or worsen they need to return immediately for re-evaluation. ED course: Workup was unremarkable. Recommend outpatient follow-up with cardiology to obtain echocardiogram and stress test given the cardiomegaly. Also advised monitoring blood pressure daily. Patient expressed understanding and is in agreement of the plan. 05/07 09:49 Order name: Basic Metabolic Panel; Complete Time: 10:47 sb4 05/07 09:49 Order name: CBC with Diff; Complete Time: 10:26 sb4 05/07 09:49 Order name: LFT's; Complete Time: 10:47 sb4 05/07 09:49 Order name: Magnesium; Complete Time: 10:47 sb4 05/07 09:49 Order name: NT PRO-BNP; Complete Time: 10:47 sb4 05/07 09:49 Order name: PT-INR; Complete Time: 10:33 sb4 05/07 09:49 Order name: Troponin HS; Complete Time: 10:47 sb4 05/07 09:49 Order name: Test, Serum; Complete Time: 10:43 sb4 05/07 09:54 Order name: TSH; Complete Time: 10:56 sb4 05/07 09:49 Order name: XRAY Chest (1 view); Complete Time: 11:03 sb4 05/07 09:49 Order name: Cardiac monitoring; Complete Time: 10:17 sb4 05/07 09:49 Order name: EKG - Nurse/Tech; Complete Time: 10:17 sb4 05/07 09:49 Order name: IV Saline Lock; Complete Time: 10:17 sb4 05/07 09:49 Order name: Labs collected and sent; Complete Time: 10:17 sb4 05/07 09:49 Order name: O2 Per Protocol; Complete Time: 10:17 sb4 05/07 09:49 Order name: O2 Sat Monitoring; Complete Time: 10:17 sb4 EC:15 Rate is 102 beats/min. Rhythm is regular, Sinus tachycardia. SD interval is normal at sb4 166 msec. QRS interval is normal at 90 msec. QT interval is normal at 382 msec. No Q waves. T waves are Normal. No ST changes noted. Clinical impression: No evidence of ischemia. Interpreted by me. Reviewed by me. Administered Medications: 10:21 Drug: NS 0.9% IV 1000 ml IV at 1000 ml once; to be given as a bolus over 60 minutes bp Route: IV; Rate: 1000 ml; Site: right forearm; 11:41 Follow up: IV Status: Completed infusion bp Disposition: 14:40 Co-signature as Attending Physician, Aric Gamez MD I agree with the assessment and shaina plan of care. Disposition Summary: 05/07/25 11:07 Discharge Ordered Notes: Location: Home sb4 Problem: an ongoing problem sb4 Symptoms: have improved sb4 Condition: Stable sb4 Diagnosis - Chest pain, unspecified sb4 - Elevated blood-pressure reading, without diagnosis of hypertension sb4 - Cardiomegaly sb4 Followup: sb4 - With: Naresh Menendez MD - When: 1 week - Reason: Recheck today's complaints, Re-evaluation by your physician Discharge Instructions: - Discharge Summary Sheet sb4 - Nonspecific Chest Pain, Adult, [id number] sb4 - Form - Blood Pressure Record Sheet sb4 Forms: - Work release form bp - Patient Portal Instructions sb4 - Leadership Thank You Letter sb4 Signatures: Dispatcher [employer] EDAric Boles MD MD cha Peltier, Brian, RN RN Yoko Corrigan RN RN ll1 Antionette Toledo, ERIC PAAlma sb4 Corrections: (The following items were deleted from the chart) 09:50 09:49 BASIC METABOLIC PANEL+C.LAB.BRZ ordered. EDMS EDMS 09:50 09:49 CBC+H.LAB.BRZ ordered. EDMS EDMS 09:50 09:49 HEPATIC FUNCTION+C.LAB.BRZ ordered. EDMS EDMS 09:50 09:49 MAGNESIUM+C.LAB.BRZ ordered. EDMS EDMS 09:50 09:49 PROBNP+C.LAB.BRZ ordered. EDMS EDMS 09:50 09:49 PROTIME (+INR)+COAG.LAB.BRZ ordered. EDMS EDMS 09:50 09:49 Troponin High Sensitivity+C.LAB.BRZ ordered. EDMS EDMS 09:50 09:49 TEST, SERUM+SC.LAB.BRZ ordered. EDMS EDMS 09:50 09:50 Chest Single View+RAD.RAD.BRZ ordered. EDMS EDMS 09:55 09:54 Head/Face: Normocephalic, atraumatic. Eyes: Extra-ocular motions intact. sb4 Periorbital areas with no swelling, redness, or edema. ENT: Mucous membranes moist. Cardiovascular: Regular rate and rhythm with a normal S1 and S2. Respiratory: No increased work of breathing, no retractions or nasal flaring. Abdomen/GI: Soft, non-tender, no distension. Skin: Warm, dry with normal turgor. Normal color with no rashes, no lesions, and no evidence of cellulitis. sb4
[2025-05-07 16:59] VITALS: TEMP 97.3
[2025-05-07 17:02] VITALS: BP 142/94; O2SAT 96
== END 2025-05-07 11:41 | disposition home or self-care (01) ==
LOC: ER 09:32
DX: R07.9 Chest pain, unspecified (principal); R03.0 Elevated blood-pressure reading, without diagnosis of hypertension; I51.7 Cardiomegaly; E03.9 Hypothyroidism, unspecified
CPT/HCPCS: 36415; 71045; 80048; 80076; 83735; 83880; 84443; 84484; 84703; 85025; 85610; 93005; 96360; 99285; J7030